=== PATIENT | female | born 1970 | race Caucasian/White ===

== ENCOUNTER 2024-10-16 12:46 | Emergency (ER) | payer OTHER ==
[2024-10-16] MEDS: Sodium Chloride 0.9% 1,000 ML IV ONE (13:01)
[2024-10-16 13:11] LABS: BASOPHILS ABSOLUTE AUTO 0.1 K/mm3 (0.0-0.2); BASOPHILS PERCENT AUTO 0.4 % (0.0-1.0); EOSINOPHILS ABSOLUTE AUTO 0.3 K/mm3 (0.0-0.4); EOSINOPHILS PERCENT AUTO 1.4 % (0.0-6.0); HEMATOCRIT 47.3 % (37.0-47.0); HEMOGLOBIN 15.3 gm/dl (12.0-16.0); IMMATURE GRAN ABSOLUTE AUTO 0.17 K/mm3 (0.00-0.05); IMMATURE GRAN PERCENT AUTO 0.8 % (0.0-0.4); LYMPHOCYTES ABSOLUTE AUTO 5.3 K/mm3 (1.0-4.8); LYMPHOCYTES PERCENT AUTO 26.5 % (24.0-44.0); MEAN CORPUSCULAR HEMOGLOBIN 28.3 pg (28.0-32.0); MEAN CORPUSCULAR HGB CONC 32.3 g/dl (32.0-36.0); MEAN CORPUSCULAR VOLUME 87.4 fl (83.0-99.0); MONOCYTES ABSOLUTE AUTO 1.5 K/mm3 (0.0-0.8); MONOCYTES PERCENT AUTO 7.7 % (0.0-8.0); NEUTROPHILS ABSOLUTE AUTO 12.7 K/mm3 (1.8-7.7); NEUTROPHILS PERCENT AUTO 63.2 % (41.0-71.0); PLATELET COUNT,PLT 356 K/mm3 (150-400); RED BLOOD CELL COUNT 5.41 M/mm3 (4.10-5.30); WHITE BLOOD CELL COUNT,WBC 20.13 K/mm3 (3.9-11.3)
[2024-10-16 13:30] LABS: A/G RATIO 0.8 (1-2); ALBUMIN 3.4 g/dl (3.4-5.0); ANION GAP 16.1 (5-15); BILIRUBIN TOTAL 0.3 mg/dL (0.2-1.0); BUN/CREATININE RATIO 26.3 (14-18); CALCIUM 9.1 mg/dL (8.5-10.1); CREATININE 0.8 mg/dL (0.55-1.02); EST CRCL DRUG DOSING (CG) 73.18 mL/min; MAGNESIUM 1.5 mg/dL (1.8-2.4); PROTEIN TOTAL,TP 7.7 g/dl (6.4-8.2)
[2024-10-16 13:34] LABS: POTASSIUM,K 4.1 mEq/L (3.5-5.1)
[2024-10-16] MEDS: Sodium Chloride 0.9% 10 ML Syringe FLUSH ONE (13:53)
[2024-10-16] MEDS: Iopamidol 612 MG/ML 100 ML Bottle IVPUSH ONE (13:53)
[2024-10-16] MEDS: Magnesium Oxide 400 MG Tab PO ONE (13:58)
[2024-10-16 14:43] LABS: SLIDE REVIEW ABNORMAL SMEAR
== END 2024-10-16 14:45 | disposition home or self-care (01) ==
LOC: JD.ED 12:46
DX: R55 Syncope and collapse (principal); I10 Essential (primary) hypertension; E66.9 Obesity, unspecified; E11.9 Type 2 diabetes mellitus without complications; Z79.82 Long term (current) use of aspirin; Z79.899 Other long term (current) drug therapy; Z68.34 Body mass index [BMI] 34.0-34.9, adult
CPT/HCPCS: 36415; 71045; 74177; 80053; 82947; 83735; 84484; 85025; 93005; 96360; 99284; A9270; J7030; Q9967; 93010